=== PATIENT | female | born 1975 | race Caucasian/White ===

== ENCOUNTER 2020-04-27 06:18 | Observation (INO) ==
[2020-04-27] MEDS ORDERED: D5 1/2 NS 1000 ML 1,000 ML IV ONE (06:29)
[2020-04-27] MEDS ORDERED: ANCEF 1 GRAM IV PREMIX* 1 G/50 ML BAG IV ONE (06:30)
[2020-04-27] MEDS ORDERED: ANCEF VIAL 1 GRAM IVP ONE (06:38)
[2020-04-27] MEDS ORDERED: D5 1/2 NS 1000 ML 1,000 ML IV SCH (06:38)
[2020-04-27] MEDS ORDERED: VASOSTRICT INJ 20 UNITS VIAL ONE (06:47)
[2020-04-27] MEDS ORDERED: BETADINE SOLN ONE (06:47)
[2020-04-27] MEDS ORDERED: BETADINE SURGICAL SCRUB ONE (06:48)
[2020-04-27 06:56] VITALS: BMI 23.6
[2020-04-27] MEDS ORDERED: ProvayBLUE 0.5% ONE (06:59)
[2020-04-27] MEDS ORDERED: FENTANYL INJ 250 mcg ONE (07:24)
[2020-04-27] MEDS ORDERED: SUPRANE ONE ×3 (08:45→14:24)
[2020-04-27] MEDS ORDERED: REGLAN INJ 10 MG VIAL IVP PRN (09:18)
[2020-04-27] MEDS ORDERED: ZOFRAN INJ 4 MG VIAL IVP PRN (09:18)
[2020-04-27] MEDS ORDERED: BENADRYL INJ 50 MG VIAL IVP PRN ×2 (09:18→09:50)
[2020-04-27] MEDS ORDERED: DILAUDID INJ IVP PRN (09:18)
[2020-04-27] MEDS ORDERED: PHENERGAN INJ 25 MG IM PRN (09:18)
[2020-04-27] MEDS ORDERED: TORADOL 30 MG VIAL IVP PRN (09:50)
[2020-04-27] MEDS ORDERED: MORPHINE SULFATE PCA 30 MG IVP PRN (09:50)
[2020-04-27] MEDS ORDERED: MORPHINE SULFATE PCA 30 MG ONE (10:21)
[2020-04-27] MEDS: D5 1/2 NS 1000 ML 1,000 ML IV SCH ×2 (10:25→18:43)
[2020-04-27] MEDS: ZOFRAN INJ 4 MG VIAL IVP PRN ×2 (12:38→18:43)
[2020-04-27] MEDS ORDERED: NORCURON INJ 10 MG VIAL ONE (14:24)
[2020-04-27] MEDS ORDERED: NEOSTIGMINE INJ ONE (14:24)
[2020-04-27] MEDS ORDERED: ZOFRAN INJ 4 MG VIAL ONE (14:24)
[2020-04-27] MEDS ORDERED: VERSED ONE (14:24)
[2020-04-27] MEDS ORDERED: ROBINUL ONE (14:24)
[2020-04-27] MEDS ORDERED: QUELICIN (OR ANECTINE) ONE (14:24)
[2020-04-27] MEDS ORDERED: MOTRIN TAB 800 MG PO PRN (16:15)
[2020-04-27] MEDS ORDERED: PERCOCET TAB 5/325 MG PO PRN (16:15)
[2020-04-27] MEDS ORDERED: MYLICON TAB 80 MG CHEW PO PRN (16:18)
[2020-04-27] MEDS ORDERED: ELAVIL PO SCH (21:00)
[2020-04-27] MEDS: COLACE CAP 100 MG PO SCH (22:00)
[2020-04-28] MEDS: D5 1/2 NS 1000 ML 1,000 ML IV SCH ×3 (02:12→10:29)
[2020-04-28 04:07] LABS: BASOPHILS # (AUTO) 0.1 X10^3/uL (0.0-0.1); BASOPHILS % (AUTO) 0.5 % (0.2-1.0); HEMATOCRIT 35.6 % (36.0-47.0); HEMOGLOBIN 11.1 g/dL (12.0-16.0); LYMPHOCYTES % (AUTO) 7.5 % (21.0-51.0); MEAN CORPUSCULAR HEMOGLOBIN 24.1 pg (27.0-34.0); MEAN CORPUSCULAR HGB CONC 31.2 g/dL (33.0-35.0); MEAN PLATELET VOLUME 9.7 fL (7.4-11.0); MONOCYTES % (AUTO) 7.6 % (0.0-13.0); NEUTROPHILS # (AUTO) 11.2 x10^3/uL (2.2-4.8); NEUTROPHILS % (AUTO) 84.4 % (42.0-75.0); PLATELET COUNT 208 X10^3/uL (150.0-450.0); RED BLOOD COUNT 4.62 X10^6/uL (3.5-5.4); RED CELL DISTRIBUTION WIDTH 24.4 % (11.6-16.5); WHITE BLOOD COUNT 13.3 X10^3/uL (3.6-10.0)
[2020-04-28 04:16] LABS: BLOOD UREA NITROGEN 7 mg/dL (7-18); CALCIUM 8.9 mg/dL (8.5-10.1); CARBON DIOXIDE 28.6 mmol/L (21-32); CHLORIDE 100 mmol/L (98-107); COR NA(FOR HYPERGLY) 138 mmol/L (136-145); SODIUM 137 mmol/L (136-145); eGFR NON BLACK RACES > 60 (>60)
[2020-04-28 04:21] LABS: ANISOCYTOSIS 3+; GIANT PLATELET FEW; HYPOCHROMASIA SLIGHT; PLATELET MORPHOLOGY COMMENT ABNORMAL (NORMAL)
[2020-04-28] MEDS: COLACE CAP 100 MG PO SCH (08:47)
[2020-04-28] MEDS ORDERED: NICOTINE PATCH TD SCH (09:00)
[2020-04-28 09:56] VITALS: BP 130/65
[2020-04-28] MEDS ORDERED: ZOFRAN TAB 4 MG PO ONE (10:04)
[2020-04-28] MEDS ORDERED: ZOFRAN TAB 4 MG ONE (10:23)
== END 2020-04-28 12:05 | disposition home or self-care (01) ==
LOC: MED/SURG 06:18 → SURG1 06:18 → EDUNIT# 07:30
PROVIDERS: ADMIT Specialist; ATTEND Specialist
DX: R73.09 Other abnormal glucose; D50.8 Other iron deficiency anemias; N92.5 Other specified irregular menstruation; R10.2 Pelvic and perineal pain
CPT/HCPCS: 36415; 80048; 85025; 96360; 96361; 96374; A4216; G0378; J0330; J0690; J2250; J2271; J2405; J2710; J3010; J3490; S0119; S0181; S5010